=== PATIENT | male | born 1995 | race Caucasian/White ===

== ENCOUNTER 2020-10-25 13:29 | Emergency (ER) | payer OTHER ==
[~2020-10-25] VITALS: Ht 182.9 cm; Wt 85.3 kg
[2020-10-25 13:43] VITALS: Ht 182.9 cm; Wt 85.3 kg
[2020-10-25 15:14] VITALS: BP 145/71
== END 2020-10-25 15:14 | disposition home or self-care (01) ==
LOC: ED 13:29
DX: U07.1 COVID-19 (principal)
CPT/HCPCS: U0003